=== PATIENT | female | born 1935 | race American Indian/Alaskan Native ===

== ENCOUNTER 2021-09-26 13:44 | Emergency (ER) | payer MEDICARE, BC ==
--- NOTE | 2021-09-26 18:35 | XRay Report ---
LEFT HIP 2 VIEW(S) INDICATION / CLINICAL INFORMATION: Fall left hip pain COMPARISON: None available. FINDINGS: BONES / JOINT(S): No acute fracture or subluxation. No significant arthritis. SOFT TISSUES: No significant abnormality. ADDITIONAL FINDINGS: Osteopenia IMPRESSION: 1. No acute findings. Signer Name: Stevan Alfaro MD Signed: 09/26/2021 6:30 PM Workstation Name: [id number]
--- NOTE | 2021-09-26 18:36 | XRay Report ---
LEFT RIBS 3 VIEWS INDICATION / CLINICAL INFORMATION: Fall. Chest pain COMPARISON: None available. FINDINGS: RIBS: No acute, displaced fracture or other acute abnormality. LUNGS: No acute findings. No pneumothorax. ADDITIONAL FINDINGS: None. IMPRESSION: 1. No acute findings. Signer Name: Stevan Alfaro MD Signed: 09/26/2021 6:32 PM Workstation Name: [id number]
[2021-09-26] MEDS ORDERED: MORPHINE 2 MG/1 ML INJ IV ONE ×2 (19:12→23:30)
[2021-09-26] MEDS ORDERED: ONDANSETRON 4 MG/2 ML INJ IV ONE ×2 (19:12→23:20)
[2021-09-26] MEDS ORDERED: SODIUM CHLORIDE 0.9% 1000 ML 1,000 ML IV ONE ×2 (19:12→23:30)
--- NOTE | 2021-09-26 19:22 | Emergency Department Report ---
HPI - General Chief Complaint: Fall PUI?: No Time Seen by Provider: 09/26/21 18:19 - HPI HPI: This is an 86-year-old female who states she has no known past medical history who presents for evaluation of pain to several areas of her body secondary to mechanical slip and fall. Patient states that she fell approximately 1 to 2 da ys ago while trying to get out of her bathtub. She states that she slipped getting out of the bathtub and fell on her left side, hitting the left side of her head, the back of her neck, her left upper back, and her left hip. She states she is not taking any medicine at home for pain "because I do not have anything and only to take medicines." She denies any preceding lightheadedness dizziness chest pain shortness of breath difficulty breathing palpitations syncope or vision changes. She denies any of the symptoms occurring even after her fall. She states she was able to get up on her own. She eventually told her daughter and her daughter advised her to come to the ER. Patient is not on any oral anticoagulation for her verbal report. Pain is diffuse aching throbbing and worsened with ambulation. Pain currently 10 out of 10. ED Past Medical Hx - Past Medical History Previous Medical History?: No - Surgical History Additional Surgical History: - Social History Smoking Status: Never Smoker - Medications Home Medications: Home Medications Medication Instructions Recorded Confirmed Last Taken Type Acetaminophen [Non-Aspirin Extra 500 mg PO Q6H PRN 7 Days #30 09/26/21 Unknown Rx Strength] Lidocaine HCl [Anastia] 15 gm TP BID PRN 7 Days 1000units 09/26/21 Unknown Rx ED Review of Systems ROS: Stated complaint: FALL/HEAD/SIDE/BACK PAIN Other details as noted in HPI Comment: All other systems reviewed and negative Constitutional: no symptoms reported Eyes: as per HPI. denies: eye pain ENT: denies: ear pain, throat pain, dental pain, hearing loss, epistaxis Respiratory: denies: see HPI, cough, orthopnea Cardiovascular: denies: chest pain, palpitations, dyspnea on exertion, orthopnea, syncope, paroxysmal nocturnal dyspnea, other Gastrointestinal: denies: abdominal pain, nausea, vomiting, diarrhea, constipation, hematemesis, melena, hematochezia, other Musculoskeletal: as per HPI, back pain, other (L hip pain, R and L posterior neck pain, posterior headache) Skin: denies: rash, lesions, change in color, change in hair/nails, pruritus Neurological: headache. denies: weakness, numbness, paresthesias, confusion, abnormal gait, vertigo Psychiatric: denies: anxiety, depression, auditory hallucinations, visual hallucinations, homicidal thoughts, suicidal thoughts Physical Exam - Physical Exam Vital Signs: Vital Signs 09/26/21 09/26/21 09/26/21 14:12 18:27 18:30 Temperature 98.5 F Pulse Rate 88 97 H Respiratory 14 18 16 Rate Blood Pressure 118/74 125/96 [Right] O2 Sat by Pulse 100 98 100 Oximetry General: Gen: pt is well appearing, no acute distress HEENT: Normocephalic atraumatic pupils equally round and reactive to light extraocular muscles intact sclera anicteric; no fluid leaking or present in either ear canal; tms are present and clear b/l w/o bulging or effusions; no erythema to the auditory canal, no visible foreign bodies in either auditory canal, no mastoid bone tenderness palpation on examination, no erythema of ears, no pain reproduced with traction of earlobe or tragus of either ear, Neck: Full range of motion, no midline spinal tenderness palpation, no JVD, no carotid bruits, no nuchal rigidity CVS: S1-S2 regular rate and rhythm with no gallops rubs or murmurs, chest wall nontender Pulmonary: Clear to auscultation bilaterally, no wheezes rales or rhonchi BACK: Full range of motion, patient has mild left paraspinal tenderness palpation of the thoracic spine, no midline spinal tense palpation of thoracic lumbar spine, Abdomen: Soft nondistended nontender no guarding or rebound tenderness, no palpable deformities or step-offs, normal active bowel sounds, no hepatospl enomegaly, no pulsatile masses : Deferred, sensation to perineum normal intact, no saddle anesthesia Extremities: No cyanosis no clubbing no edema, intact distal peripheral pulses, Integumentary: Skin normal, no petechia no purpura no abscess no lacerations no evidence of trauma no evidence of infection Neuro: Patient is awake alert and oriented to person place time situation, mentating well, cranial nerves II through XII intact, no focal neurodeficits, sensation grossly tact Psych: Calm cooperative, mood affect normal ED Course Vital Signs 09/26/21 09/26/21 09/26/21 14:12 18:27 18:30 Temperature 98.5 F Pulse Rate 88 97 H Respiratory 14 18 16 Rate Blood Pressure 118/74 125/96 [Right] O2 Sat by Pulse 100 98 100 Oximetry - Reevaluation(s) Reevaluation #1: 09/26/21 20:21 Patient is comfortable and well-appearing. Patient's daughter is currently at her bedside. Patient's daughter updated concerning plan of care which includes additional diagnostic imaging. Although the patient was ordered for diagnostic imaging via triage, my thorough examination of the patient reveals that the patient necessitates further work-up and diagnostic imaging that was not previously done. Therefore we are currently awaiting basic metabolic panel results to verify the patient's creatinine is normal. And then the patient will be sent to CAT scan for further evaluation of pain in her rib cage, upper back, and left upper quadrant in the setting of her having fallen and slipped on a tub. Both patient and her daughter verbalized understanding.` ED Medical Decision Making - Lab Data Result diagrams: 09/26/21 19:51 - Radiology Data Radiology results: report reviewed - Medical Decision Making 86-year-old female presents for evaluation of pain to multiple areas of her body status post mechanical slip and fall while trying to get out of the tub 1 day ago. Vital signs stable. Patient has several areas of localized muscular tenderness to palpation on examination. Diagnostic imaging performed and results reviewed. No acute bony or life-threatening pathology found. Patient given analgesics here with good effect. Given the patient's age and that risk of providing narcotics and/or muscle relaxants significantly outweigh the benefits, patient will be discharged on a prescription for acetaminophen and Lidoderm patches. This was discussed at length with her daughter who is at her bedside. No further emergent work-up warranted. Patient stable for discharge to home. Prior to discharge patient and her daughter verbalized understanding and agreement the plan of care. Critical Care Time: No Critical care attestation.: If time is entered above; I have spent that time in minutes in the direct care of this critically ill patient, excluding procedure time. ED Disposition Clinical Impression: Muscle pain, Slipping, tripping and stumbling without falling due to stepping from one level to another, initial encounter Disposition: HOME / SELF CARE / HOMELESS Is pt being admited?: No Does the pt Need Aspirin: No Condition: Stable Additional Instructions: Your x-rays and CAT scans do not show any broken bones or internal bleeding. Pain is likely due to muscular pain which can be severe and can hurt for several days. Ache acetaminophen 500 mg by mouth every 6 hours as needed for pain. You may take low-dose ibuprofen for additional pain management in between your dosages of acetaminophen. Finally you may take a Lidoderm patch and apply to your areas of pain for additional pain management. Please also consider using [id number] Biofreeze or other topical ointments to help with pain management as well. If your pain is not improving over the next few days, please telephone your primary care doctor for an immediate follow-up appointment and reassessment. This is very important. Return to the nursing emergency department soon as possible if you develop severe or worsening pain, vomiting, dizziness, vision loss or other vision changes, inability tolerate liquids or solids, or if any other new worrisome symptoms develop Prescriptions: Lidocaine HCl [Anastia] 15 gm TP BID PRN 7 Days 1000units PRN Reason: Muscle Spasm Acetaminophen [Non-Aspirin Extra Strength] 500 mg PO Q6H PRN 7 Days #30 PRN Reason: Pain, Moderate (4-6) Referrals: PRIMARY CARE,MD [Primary Care Provider] - 3-5 Days
--- NOTE | 2021-09-26 19:28 | Cat Scan Report ---
NONENHANCED CT SCAN OF THE HEAD: INDICATION / CLINICAL INFORMATION: 86 years Female; Fall. TECHNIQUE: Routine CT head without contrast. All CT scans at this location are performed using CT dos e reduction for ALARA by means of automated exposure control. COMPARISON: No intracranial sequela from the trauma; no scalp hematoma; no fluid level in the paranasal sinuses FINDINGS: BRAIN / INTRACRANIAL CONTENTS: No acute hemorrhage, mass effect, midline shift, hydrocephalus, or acu te, large territorial infarct. No chronic infarct or focal atrophy. Normal brain volume and ventricul ar/sulcal size for age. Confluent extensive periventricular low-attenuation areas seen due to chronic small vessel disease. Chronic changes are also seen in the corpus striatum bilaterally. CRANIOCERVICAL JUNCTION: No significant abnormality. ORBITS: No significant abnormality of visualized orbits. SINUSES / MASTOIDS: Opacified left posterior ethmoid air cells ADDITIONAL FINDINGS: None. IMPRESSION: No intracranial sequela from the trauma Signer Name: Arti Scott MD Signed: 09/26/2021 7:24 PM Workstation Name: [email or web address]
[2021-09-26] MEDS ORDERED: LIDOCAINE 5% 1 EACH PATCH TD STA (19:32)
[2021-09-26 20:40] LABS: Blood Urea Nitrogen 13 mg/dL (7-17); Calcium 9.5 mg/dL (8.4-10.2); Hemolysis Index 33
[2021-09-26 20:49] LABS: BUN/Creatinine Ratio 19
--- NOTE | 2021-09-26 21:48 | Cat Scan Report ---
CT CERVICAL SPINE WITHOUT CONTRAST INDICATION: posterior cervical spine pain s/p fall, head inj. TECHNIQUE: All CT scans at this location are performed using CT dose reduction for ALARA by means of automated e xposure control. Axial CT images were obtained through the cervical spine. Sagittal and coronal reformatted images we re produced. COMPARISON: None available. FINDINGS: Fracture: None. Subluxation: None. Spinal canal: No significant compromise. Disc spaces: Moderately advanced discogenic degenerative disease C2-3. Mild discogenic degenerative d isease C5-7 Facet joints: Mild multilevel facet degenerative disease bilaterally C4-T1 Paraspinal soft tissues: No soft tissue swelling. Normal. Additional findings: None. Lung apices: Normal. IMPRESSION: 1. No acute findings. Signer Name: Stevan Alfaro MD Signed: 09/26/2021 9:44 PM Workstation Name: [id number]
--- NOTE | 2021-09-26 21:55 | Cat Scan Report ---
CT CHEST WITH CONTRAST INDICATION / CLINICAL INFORMATION: L lat chest wall/L thoracic pain s/p fall onto tub. TECHNIQUE: Axial CT images were obtained through the chest after 100 cc Omni [address] scans at this location are performed using CT dose reduction for ALARA by means of automated exposure control. COMPARISON: None available. FINDINGS: HEART: No significant abnormality. CORONARY ARTERY CALCIFICATION: Absent -- None. THORACIC AORTA: No significant abnormality. MEDIASTINUM / GUILHERME: No significant abnormality. PLEURA: No pleural effusion. No pneumothorax. LUNGS: No acute air space or interstitial disease. Solid 4 mm left upper lobe pulmonary nodule image 36. Bibasilar dependent atelectasis ADDITIONAL FINDINGS: None. UPPER ABDOMEN: No significant abnormality. SKELETAL SYSTEM: No significant abnormality. IMPRESSION: 1. No significant abnormality. 2. Single incidental pulmonary nodule(s) in the left upper lobe measuring 4 mm with solid characteris tics. Recommendation according to Fleischner Society 2017 Guidelines: Low Risk Patient: No routine fo llow-up; High Risk Patient: Optional CT at 12 months. Signer Name: Stevan Alfaro MD Signed: 09/26/2021 9:50 PM Workstation Name: [id number]
--- NOTE | 2021-09-26 21:57 | Cat Scan Report ---
CT ABDOMEN WITH CONTRAST INDICATION / CLINICAL INFORMATION: L flank and LUQ pain s/p hitting tub. TECHNIQUE: Axial CT images were obtained through the abdomen after IV contrast. All CT scans at this location ar e performed using CT dose reduction for ALARA by means of automated exposure control. COMPARISON: None available. FINDINGS: LOWER CHEST: No significant abnormality. LIVER: No significant abnormality. GALLBLADDER: No significant abnormality. BILE DUCTS: No significant abnormality. PANCREAS: No significant abnormality. SPLEEN: No significant abnormality. ADRENALS: No significant abnormality. RIGHT KIDNEY and URETER: Multiple simple cysts LEFT KIDNEY and URETER: No significant abnormality. STOMACH and SMALL BOWEL: No significant abnormality. COLON: No significant abnormality. APPENDIX: No significant abnormality. PERITONEUM: No free fluid. No free air. No fluid collection. LYMPH NODES: No significant adenopathy. AORTA and ARTERIES: No significant abnormality. IVC and VEINS: No significant abnormality. ADDITIONAL FINDINGS: None. SKELETAL SYSTEM: No significant abnormality. IMPRESSION: 1. No significant abnormality. Signer Name: Stevan Alfaro MD Signed: 09/26/2021 9:52 PM Workstation Name: [id number]
[2021-09-26 22:05] VITALS: BP 150/101
== END 2021-09-26 23:15 | disposition home or self-care (01) ==
LOC: ED 13:44
DX: M79.10 Myalgia, unspecified site (principal); R91.1 Solitary pulmonary nodule; Z79.899 Other long term (current) drug therapy; W18.49XA Other slipping, tripping and stumbling without falling, initial encounter; Y93.89 Activity, other specified; Y92.89 Other specified places as the place of occurrence of the external cause; Y99.8 Other external cause status
CPT/HCPCS: 36415; 70450; 71100; 71260; 72125; 73502; 74160; 80048; 96361; 96374; 96375; 99284; J2270; J2405; J7030; Q9967